=== PATIENT | female | born 1950 | race African-American/Black ===

== ENCOUNTER 2018-06-21 12:21 | Inpatient (IN) | payer OTHER ==
[~2018-06-21] VITALS: Ht 165.1 cm; Wt 62.1 kg
--- NOTE | ~2018-06-21 | 2DMMODE ---
[facility] [address] [place] [address] 2 D/M-MODE ECHOCARDIOGRAM Name: DAILY COULTER Room #: 362-P ADM IN M.R.#: [id number] Admission: 06/21/18 Attend Phys: Larisa Ortiz Discharge: Date of : 48 Date of Service: 06/23/18 [facility] Report #: [id number] THIS REPORT FOR: //name// APPROVED REPORT Study performed: 06/23/2018 09:20:32 EXAM: Comprehensive 2D, Doppler, and color-flow Echocardiogram Patient Location: Echo lab Room #: [facility] Status: routine BSA: 1.68 HR: 69 bpm BP: 117/76 mmHg Rhythm: NSR Other Information Study Quality: Good Indications CVA/TIA Echo Enhancing Agent Indication: Rule out Shunt Agent(s) / Amount(s) Used: Agitated Saline 7 cc 2D Dimensions RVDd: 28.70 mm IVSd: 8.68 (7-11mm) LVOT Diam: 19.19 (18-24mm) LVDd: 40.17 mm PWd: 8.86 (7-11mm) Ascending Ao: 27.04 (22-36mm) LVDs: 24.80 (25-40mm) Aortic Root: 28.04 mm IVC: 18.00 mm Volumes Left Atrial Volume (Systole) Single Plane 4CH: 28.99 mL Single Plane 2CH: 44.87 mL LA ESV Index: 27.00 mL/m2 Aortic Valve AoV Peak David.: 1.28 m/s AO Peak Gr.: 6.57 mmHg LVOT Max P.60 mmHg LVOT Max V: 1.07 m/s EVIN Vmax: 2.[address] [facility] [address] [place] [address] 2 D/M-MODE [facility]IOGRAM [facility]: [facility] IN ..#: [id number] Admission: 06/21/18 Attend Phys: Larisa Ortiz Discharge: Date of : 48 Date of Service: 06/23/18 1024 Report #: [id number] Mitral Valve E/A Ratio: 1.2 MV Decel. Time: 167.65 ms MV E Max David.: 0.83 m/s MV A David.: 0.68 m/s MV PHT: 48.62 ms IVRT: 101.50 ms Pulmonary Valve PV Peak David.: 0.76 m/s PV Peak Gr.: 2.35 mmHg Pulmonary Vein P Vein S: 0.58 m/s P Vein A: 0.28 m/s P Vein D: 0.34 m/s P Vein A Dur.: 110.7 msec P Vein S/D Ratio: 1.71 Tricuspid Valve TR Peak David.: 2.45 m/s TR Peak Gr.: 23.98 mmHg PA Pressure: 29.00 mmHg Left Ventricle The left ventricle is normal size. There is normal LV segmental wall motion. There is normal left ventricular wall thickness. The left ventricular systolic function is normal. The left ventricular ejection fraction is within the normal range. LVEF is 60-65%. Grade II - pseudonormal filling dynamics. Right Ventricle The right ventricle is normal size. The right ventricular systolic function is normal. Atria The left atrium size is normal. Interatrial septum is intact without evidence of ASD or PFO. The right atrium size is normal. Aortic Valve The aortic valve is normal in structure. Trace aortic regurgitation. There is no aortic valvular stenosis. Mitral Valve The mitral valve is normal in structure. There is no mitral valve regurgitation noted. No evidence of mitral valve stenosis. Tricuspid Valve The tricuspid valve is normal in structure. There is mild tricuspid [facility] [address] [place] [address] 2 D/M-MODE ECHOCARDIOGRAM Name: DAILY COULTER Room #: 362-P ADM IN ..#: [id number] Admission: 06/21/18 Attend Phys: Larisa Ortiz Discharge: Date of : 48 Date of Service: 06/23/18 1024 Report #: [id number] regurgitation. Estimated PAP 29 mmHg. There is no pulmonary hypertension. Pulmonic Valve The pulmonary valve is normal in structure. Trace pulmonic regurgitation. Great Vessels The aortic root is normal in size. IVC is normal in size and collapses >50% with inspiration. Pericardium There is no pericardial effusion. <Conclusion> The left ventricle is normal size. LVEF is 60-65%. Interatrial septum is intact without evidence of ASD or PFO. The aortic valve is normal in structure. Trace aortic regurgitation. The mitral valve is normal in structure. The tricuspid valve is normal in structure. There is mild tricuspid regurgitation. Estimated PAP 29 mmHg. There is no pulmonary hypertension. The pulmonary valve is normal in structure. Trace pulmonic regurgitation. There is no pericardial effusion. <ELECTRONICALLY SIGNED> By: Austin Palacios MD 06/23/18 1024 1024 1024 Austin Palacios MD /INF
--- NOTE | ~2018-06-21 | HC ---
[facility] [place] [address] CONSULTATION Name: DAILY COULTER Room #: 362-P ADM IN M.R.#: [id number] Admission: 06/21/18 Attend Phys: Larisa Leon Discharge: Date of : 48 Report #: [id number] THIS REPORT FOR: //name// CC: Larisa Cole DATE OF SERVICE: 06/24/2018 REASON FOR CONSULTATION: Possible vertebral osteomyelitis. HISTORY OF PRESENT ILLNESS: The patient is a 67-year-old woman who presented to the Emergency Room with stroke-like symptoms including generalized weakness, dizziness and inability to get out of bed. She reported that she had left-sided problems with whole body left-sided numbness. Since her hospitalization, those symptoms have largely improved. She has noted some problems with headache and some neck pain, which has been present for years intermittently. She was evaluated early by Neurology. She was studied and it was felt that she did not have a stroke. However, on her imaging studies, there is a question of osteomyelitis and diskitis at C7-T1. We were asked to give an opinion about this. PAST MEDICAL HISTORY: Includes osteoporosis, sleep apnea, hyperlipidemia, poor dental hygiene. No recent dental work. Colonoscopy several months ago, which was negative. SOCIAL HISTORY: She lives at home and taking care of her . She is active. Non smoker. ALLERGIES: No known allergies. MEDICATIONS: Seen on the MRAD. They are noncontributory. REVIEW OF SYSTEMS: A 12-point review of systems was performed and was negative other than outlined above. PHYSICAL EXAMINATION: GENERAL: She is pleasant, alert and cooperative, oriented x 3, reporting that she is feeling overall better today. I have had her sit at the bedside. She reported mild discomfort in her neck and said that is a chronic problem. NEUROLOGIC: Her pupils are equal and reactive with normal extraocular motor function. Facial motor and facial sensory examination was normal. Lower cranial nerves were intact. Motor examination: Strength 5/5 in upper and lower extremities bilaterally. On sensory examination, she is intact to light touch in upper and lower extremities bilaterally with hypoactive reflexes. NECK: Examination of her neck, the neck was supple. There was mild tenderness over the trapezius muscles bilaterally with palpation. There was full range of [address] [address] CONSULTATION Name: DAILY COULTER Room #: [address] [place] [address] IN M.R.#: [id number] Admission: 06/21/18 Attend Phys: Larisa Leon Discharge: Date of : 48 Report #: [id number] motion of her neck. EXTREMITIES: There was full range of motion of upper and lower extremities bilaterally. LABORATORY DATA: I reviewed an MRI of the cervical spine. On that study, there are changes at C7-T1 at the level of the disc, which are suggestive of osteomyelitis including increased T2 signal within the intervertebral disc. There was also significant spondylosis throughout this region. I did not see evidence of abscess formation. There was no spinal stenosis. There were no abnormalities in the perivertebral region. Her sed rate was 13. At this point, I have a fairly low index of suspicion for osteomyelitis/discitis in this patient based primarily on her lack of symptoms and negative inflammatory markers. I note that she is undergoing a gallium scan today. I agree with leaving her off antibiotics. I suspect we are dealing with narrow region of severe spondylosis and inflammation related to that at C7-T1 with perhaps distant trauma creating the changes we see on the MRI scan. I do think she should be followed. Even if the gallium scan is negative, I would recommend a followup MRI scan of the cervical spine in 2-4 weeks. If there is ongoing osteomyelitis/diskitis, we would see progressive changes over that time interval. I appreciate very much of asking us to see her. <ELECTRONICALLY SIGNED> By: Boyd Denton MD 06/25/18 1423 1014 0331 Boyd Denton MD /nt
--- NOTE | ~2018-06-21 | EKG ---
[address] [place] [address] ELECTROCARDIOGRAM REPORT Name: DAILY COULTER Room #: 362-P ADM IN M.R.#: [id number] Admission: 06/21/18 Attend Phys: Larisa Leon Discharge: Date of : 48 Report #: [id number] THIS REPORT FOR: //name// [facility] ED Test Date: 2018-06-21 Test Time: 12:24:46 Pat Name: DAILY COULTER Department: Room: 362 P Gender: F Demand Manager: JONAH : 1950 Requested By: Guera Castrejon Order Number: [id number] MD: Darius Pierre Measurements Intervals [place] Rate: 89 P: 43 MS: 141 QRS: -6 QRSD: 87 T: -4 QT: 364 QTc: 443 Interpretive Statements Sinus rhythm Abnormal R-wave progression, early transition Borderline T abnormalities, inferior leads No previous ECG available for comparison Electronically Signed On 06-21-2018 16:31:35 CDT by Darius Pierre [email or web address] <ELECTRONICALLY SIGNED> By: Darius Pierre MD 06/21/18 1631 1224 1224 Darius Pierre MD /PITER
--- NOTE | ~2018-06-21 | HC ---
[facility] [address] [address] CONSULTATION Name: DAILY COULTER Room #: 362-P [facility] IN M.R.#: [id number] Admission: 06/21/18 Attend Phys: Larisa Leon Discharge: 06/30/18 Date of : 48 Report #: [id number] THIS REPORT FOR: //name// CC: Larisa Cole DATE OF SERVICE: 06/23/2018 HISTORY OF PRESENT ILLNESS: The patient is a 67-year-old -[place] female admitted with dizziness, left-sided weakness as well as some right lower extremity weakness. Neurology has been involved and they indicated that her symptoms were somewhat nonspecific and there has been some changing in her description, making it difficult to establish the diagnosis. CT of the head and CTA and MRI of the brain are noted to be negative. She is to undergo imaging of her cervical spine. We are seeing her in rehabilitation medicine consultation. PAST MEDICAL HISTORY: Includes osteoporosis, elevated cholesterol, and obstructive sleep apnea. ALLERGIES: No known drug allergies. HABITS: She has had exposure to tobacco smoke. No history of alcohol abuse. SOCIAL HISTORY: She lives alone in an apartment, one floor, one step. Plan is to move in with her daughter in [place], there is a full flight of steps to get up to the granddaughter's living area. Daughter does work during the day. There is a cane or walker that the patient would utilize on and off at times; although the daughter did not typically see the patient utilizing gait aids per the daughter's history. REVIEW OF SYSTEMS: She did not offer any current complaints of chest pain, shortness of breath, or abdominal discomfort. She did not offer any complaints of swallowing difficulties. No current pain complaints. PHYSICAL EXAMINATION: GENERAL: A 67-year-old -[place] female in no obvious distress. VITAL SIGNS: Last recorded temperature is 97.7, pulse is 83, respirations are 15, and blood pressure is 117/76. She is alert. HEENT: Appeared to be benign. Dentition is fair. NEUROLOGIC: Facies appeared symmetric. EOMs appeared to be intact. There is no visual field, decrease to confrontation. Functional range of motion of both upper extremities, strength is a grade 4/5. DTRs are trace to 1. Slow but does reasonably well with [id number]. Lower extremities, no focal calf swelling. She moves her lower extremities slowly. Strength is probably a grade 3+4-/5. No clonus at the ankles. [facility] [address] [place] [address] CONSULTATION Name: DAILY COULTER Room #: 362-P [facility] IN [facility].#: [id number] Admission: 06/21/18 Attend Phys: Larisa Leon Discharge: 06/30/18 Date of : 48 Report #: [id number] ASSESSMENT: A 67-year-old -[place] female with the following problem list: 1. Left-sided weakness without obvious etiology. 2. Complaints of right lower extremity weakness again without obvious etiology. 3. Gait instability. 4. Functional mobility and ADL deficits. 5. Osteoporosis. 6. Elevated cholesterol. 7. Obstructive sleep apnea. PLAN: Therapy evaluations are underway. We will need to see what her functional deficits are and proceed from there. We will be glad to follow along with you regarding her rehab therapy needs. <ELECTRONICALLY SIGNED> By: Ashu Gray MD 07/04/18 1220 1059 0010 Ashu Gray MD /PMT
--- NOTE | ~2018-06-21 | EEG ---
[facility] [place] [address] ELECTROENCEPHALOGRAM Name: DAILY COULTER Room #: 362-P ADM IN M.R.#: [id number] Admission: 06/21/18 Attend Phys: Larisa Villaseñor Discharge: Date of : 48 Report #: [id number] THIS REPORT FOR: //name// CC: Larisa Cole DATE OF SERVICE: 06/21/2018 This patient is being evaluated for dizziness and left-sided weakness. EEG was done by placing the electrodes by standard 10-20 system of electrode placement. Both referential and sequential montages were used for recording. Background activity in this patient's EEG is about 11 Hz and 40 microvolts. It is a symmetrical activity. Photic stimulation is unremarkable. This patient went to sleep that is associated with bilaterally symmetrical sleep spindle and vertex sharp waves. Throughout the record no active epileptiform activity was noticed. IMPRESSION: This patient's electroencephalogram is within normal limit. Thank you very much for this referral. <ELECTRONICALLY SIGNED> By: Stiven Cohen MD 06/24/18 1700 0859 1334 Stiven Cohen MD /nt
--- NOTE | ~2018-06-21 | HC ---
[facility] [place] [address] CONSULTATION Name: DAILY COULTER Room #: 362-P ADM IN M.R.#: [id number] Admission: 06/21/18 Attend Phys: Larisa Leon Discharge: Date of : 48 Report #: [id number] THIS REPORT FOR: //name// CC: Larisa Cole DATE OF SERVICE: 06/21/2018 HISTORY OF PRESENT ILLNESS: This is a 67-year-old female patient for whom a consultation was kindly requested by Dr. Castrejon from the Emergency Room for possible CVA. I discussed the patient with her in detail before seeing the patient and after seeing the patient. I talked to the family. As I understand, the patient lives by herself. She went to sleep last night and she was fine and then about 3:00 this morning, she woke up and she could not walk. She was also feeling dizzy. History is very poorly defined. There is some question of not feeling right and I am not sure whether that means she had some altered mental status or whether it was just because of dizziness. She was about the same. She finally called her daughter and the daughter brought her to Emergency Room. She has no prior history of stroke. They tell me her memory in the baseline is reasonable that she is able to function by herself. It is difficult for me to tell because we have not seen this patient before. REVIEW OF SYSTEMS: Indicate that when she came here at least her blood sugar was 77. Her blood pressure is reasonable here and she does not have any reactive hypertension. To me she tells me she does not have any history of hypertension. She denies being on any diabetic medicines. She denies any previous cardiac disease. She did have a CT angiogram of the head and neck that does not show any blockage, but the transit time is somewhat abnormal and they have recommended an MRI. She does not know what her baseline cholesterol is. She said she is not on any blood thinner. PAST MEDICAL HISTORY: Negative for any stroke or any cardiac problem. FAMILY HISTORY: Negative for early age strokes. SOCIAL HISTORY: She lives by herself. PHYSICAL EXAMINATION: The patient's examination indicate that the patient is alert and responsive. Her affect is somewhat different. Speech is somewhat different, but she is able to convey most of the things. Cranial nerve examination again she smiles in somewhat unusual way. Sometime it looks like there is a weakness on the left side of the face, sometime I can tell. She does appear to have a reasonable visual field on both sides. 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 She is also weak on the left lower extremity. Some question has been noticed of the right-sided weakness, but I did not see any weakness on the right side in this [facility] [address] [place] [address] CONSULTATION Name: DAILY COULTER Room #: 362-P [facility] IN M.R.#: [id number] Admission: 06/21/18 Attend Phys: Larisa Leon Discharge: Date of : 48 Report #: [id number] patient when I saw this patient at least when she gave a good effort, but she indicates that she has arthritis and lot of weakness is because of that. She said her sensation is that she cannot feel on the left side in both upper and the lower extremity, but she can feel it on the right side. Vital signs indicate a blood pressure of 139/94, respirations 18, pulse is 90 and temperature is 98. LABORATORY DATA: Looks fairly unremarkable. CT angio of the head and neck is unremarkable. Her calcium is a trace high at 10.2. We will get an albumin checked some time. IMPRESSION: This patient most likely had a stroke, but the symptoms are pretty unusual in this patient. Typically, these patients have right-sided stroke and some neglect on the left side and when they tried to walk and that is the time they noticed this weakness, but her history of dizziness and not feeling right is somewhat unusual and she also gives some history that she has been weak because of arthritis in the past and I do not know how to fit in there. I discussed the situation with the family. There is no contraindication for doing an MRI in this patient. She will need an MRI to confirm the diagnosis of stroke. With pretty confusing symptoms in this patient, I think it will be desirable to proceed with the MRI to confirm the diagnosis of stroke in this patient. If MRI of the brain confirmed a stroke, then we need to proceed with the further management of that. Further management if it is a stroke is not going to be much at the moment. I suggested to Emergency Room physician that we give her some fluids to keep her blood pressure high, give her aspirin. She is not TPA candidate because the time of onset of is yesterday evening when she went to sleep and she is not an intervention candidate because there is no blood clot, which has been demonstrated on the CT angiogram. Her cholesterol just came and she does have dyslipidemia and she will need the management of that, but on the other hand, her HDL is also very high at 82, at least partly nullifying the dyslipidemia. If for some reason, MRI does not confirm the stroke then she needs to be worked up for stroke mimic. I do not think she has any intracranial infection or seizures, but if MRI does not demonstrate or confirm any stroke, then I think we need to work her up for stroke mimic. Because of atypical feature in this patient, I think it is best to proceed with the MRI today if somehow we can get it done, so I ordered a stat for that and we will look at it and if the MRI confirmed the stroke main management is going to be systemic. If it is a small vessel stroke, the patient can become worst. I made that very clear to the family. There is nothing you can do to prevent that worsening. We will reevaluate after the MRI is done and if MRI does not confirm the stroke, then I think we need to work her up for stroke mimic. More than 50 minutes of time was [facility] [address] [place] [address] CONSULTATION Name: DAILY COULTER Room #: 362-P ADM IN M.R.#: [id number] Admission: 06/21/18 Attend Phys: Larisa Leon Discharge: Date of : 48 Report #: [id number] spent taking care of this patient today and majority of that time was spent counseling this patient and coordinating her care. <ELECTRONICALLY SIGNED> By: Stiven Cohen MD 06/24/18 1659 1701 0557 Stiven Cohen MD /nt
--- NOTE | ~2018-06-21 | HC ---
[facility] [place] [address] CONSULTATION Name: DAILY COULTER Room #: 362-P ADM IN M.R.#: [id number] Admission: 06/21/18 Attend Phys: Larisa Leon Discharge: Date of : 48 Report #: [id number] THIS REPORT FOR: //name// CC: Larisa Cole DATE OF SERVICE: 06/23/2018 REASON FOR CONSULTATION: I was asked to evaluate concerning possible vertebral osteomyelitis. HISTORY OF PRESENT ILLNESS: The patient is a 67-year-old who presented to the Emergency Room on 06/21/2018 with acute onset of generalized weakness, dizziness, inability to get out of bed early in the morning when her had called for her in another room. Denied any specific fever, although she said she has been having intermittent chills and sweats. She had difficulty walking. She noted some left-sided weakness. She had some mild headache and neck pain along with generalized arthralgias. She was seen by Neurology who noticed no focal neurologic changes. She had some left leg and arm sensory complaints, which were unable to be documented as defects on examination. She had further workup including CT stroke protocol with perfusion scan, which showed unremarkable study in the neck. She has slight asymmetry in the mean transit time through the right cerebral hemisphere. This, however, remained below 6 seconds. It was felt that the exam was within normal limits. Ultrasound of the carotids noticed mild plaquing with less than 50% stenosis. MR scan of the head showed no evidence of acute or recent infarct or other intracranial abnormality. MRI scan of the cervical spine revealed increased uptake in C7-T1 disk space with associated bony change. No epidural extension. This was discussed with Dr. Daniel Hernandes who noted no other adjacent fluid collection to suggest epidural abscess. There was no spinal stenosis. Otherwise, had moderate multilevel degenerative disk disease. She has had no skin lesions. She had a colonoscopy several months ago with no invasive intervention or biopsy performed. She has had poor dental hygiene. No recent dental work. She has been fairly stressed at her home taking care of her . She has remained fairly active. Daughter questions whether there could be some psychological overlay. ALLERGIES: None known. MEDICATIONS: Paroxetine, simvastatin prior to her admission. FAMILY HISTORY: Noncontributory. [address] [address] CONSULTATION Name: SIVAN COULTERPR Room #: 362-P [facility] IN M.R.#: [id number] Admission: 06/21/18 Attend Phys: Larisa Leon Discharge: Date of : 48 Report #: [id number] SOCIAL HISTORY: Nonsmoker, no significant alcohol intake. PAST MEDICAL HISTORY: Osteoporosis, hyperlipidemia, obstructive sleep apnea. REVIEW OF SYSTEMS: CONSTITUTIONAL: Negative other than what is described above with no weight loss or night sweats noted. EYES: Without visual changes. HENT: No oral mucosal issues or hearing issues. PULMONARY: Negative. CARDIOVASCULAR: Negative. GASTROINTESTINAL: Negative. GENITOURINARY: Negative. NEUROLOGIC: As above. PSYCHIATRIC: As above. No adenopathy reported. SKIN: As above. PHYSICAL EXAMINATION: VITAL SIGNS: She was afebrile and hemodynamically stable. GENERAL: She was ambulatory with a walker. She is alert and cooperative, sitting at the side of the bed. Mood appeared normal. She did have some generalized weakness. HEENT: No conjunctival injection or scleral icterus. Mouth with several teeth with dental caries, several teeth missing. No other oral mucosal changes. NECK: Supple, with no thyromegaly or mass. She did note some pain on flexion of her neck. She had reasonable range of motion. No peripheral adenopathy. SKIN: Without rash or lesion. LUNGS: Clear. HEART: Regular, without murmur. ABDOMEN: Soft and nontender with no hepatosplenomegaly or mass. EXTREMITIES: Without cyanosis or edema. NEUROLOGIC: Cranial nerves intact. Strength was normal in the upper and lower extremities. Deep tendon reflexes normal in the upper and lower extremities. Sensation intact to touch in the upper and lower extremities. LABORATORY STUDIES: MRI scan as noted above. Echocardiogram unremarkable. Sedimentation rate 13. Hemoglobin 13.3, WBC 6.4, platelet count 378,000. Sodium 139, potassium 3.5, bicarbonate 26, creatinine 0.7. IMAGING STUDIES: As noted above. IMPRESSION: 1. A 67-year-old with presentation of unsteadiness and possible focal neurologic deficit which has resolved. During her workup, now has evidence of increased uptake within C7-T1 disk space and has bony change as well. This is suggestive of diskitis with vertebral osteomyelitis. The patient, however, has [address] [address] CONSULTATION Name: DAILY COULTER Room #: 362-P ADM IN M.R.#: [id number] Admission: 06/21/18 Attend Phys: Larisa Leon Discharge: Date of : 48 Report #: [id number] had no ongoing infectious symptoms such as fever or chills. Her neck pain is mild to moderate in intensity. Her inflammatory markers are unremarkable. 2. Osteoporosis. 3. Hyperlipidemia. 4. Indeterminant neurologic complaints. RECOMMENDATION: This area is not amenable for Radiology percutaneous aspiration. We will need to have Neurosurgery evaluate. We will have their opinion regarding feasibility of needle aspiration. We will obtain blood cultures. Check CRP. May also consider gallium scan. We will maintain off antibiotics at this point in time. Ultimately, the patient will need further dental evaluation and treatment. <ELECTRONICALLY SIGNED> By: Jorge Ferreira MD 06/24/18 2033 [id number] Jorge Ferreira MD /nt
[2018-06-21 12:27] VITALS: BP 136/71
[2018-06-21 12:46] LABS: ABSOLUTE NEUTROPHILS 2.4 thou/uL (1.4-8.2); BASOPHILS 1.9 % (0.0-2.0); HEMATOCRIT 39.6 % (37.0-47.0); HEMOGLOBIN 13.3 gm/dL (12.0-15.0); LYMPHOCYTES 49.5 % (24.0-44.0); MCH 27.6 pg (26.0-34.0); MCHC 33.6 g/dL (28.0-37.0); MCV 82.1 fL (80.0-100.0); MONOCYTES 9.2 % (1.0-8.0); PLATELET COUNT 378 thou/uL (150-400); POLYS 38.4 % (36.0-66.0); RBC 4.82 mil/uL (4.20-5.00); RDW 13.5 % (10.5-14.5); WBC 6.4 thou/uL (4.0-11.0)
[2018-06-21 12:54] LABS: CALCIUM 10.2 mg/dL (8.5-10.1); CREATININE 0.7 mg/dL (0.6-1.0); POTASSIUM 3.5 mmol/L (3.5-5.1)
[2018-06-21 13:04] LABS: APTT 28.1 Seconds (24.5-32.8); PROTIME 10.1 Seconds (9.3-11.4)
[2018-06-21 14:52] VITALS: BP 154/86
[2018-06-21 15:13] LABS: CHOLESTEROL 276 mg/dL (<200); HDL CHOLESTEROL 82 mg/dL (>40); LDL CHOLESTEROL 180 mg/dL (<100); TC:HDL 3.4 Ratio (Not establshd); TRIGLYCERIDE 73 mg/dL (<150); VLDL 15 mg/dL (<40)
[2018-06-21 15:32] VITALS: BP 154/86
[2018-06-21 15:44] LABS: FOLIC ACID 17.7 ng/mL (8.6-58.9)
[2018-06-21 16:51] VITALS: BP 139/94; BP 141/85
[2018-06-21] MEDS ORDERED: PAROXETINE HCL40 MG PO (18:14)
[2018-06-21] MEDS ORDERED: SIMVASTATIN40 MG PO (18:15)
[2018-06-21 19:33] VITALS: BP 150/93
[2018-06-22 04:00] VITALS: BP 140/95
[2018-06-22 08:08] VITALS: BP 139/93
[2018-06-22 15:21] VITALS: BP 135/88
[2018-06-22 19:44] VITALS: BP 148/93
[2018-06-23 04:08] VITALS: BP 140/85
[2018-06-23 07:43] VITALS: BP 117/76
[2018-06-23 15:10] VITALS: BP 125/72
[2018-06-23 19:15] VITALS: BP 122/86
[2018-06-23 22:05] LABS: IgA 191 mg/dL (87-352); IgG 1105 mg/dL (700-1600); IgM 34 mg/dL (26-217)
[2018-06-24 04:30] VITALS: BP 146/91
[2018-06-24 08:01] VITALS: BP 148/93
[2018-06-24 19:15] VITALS: BP 138/91
[2018-06-25 02:32] VITALS: BP 137/88
[2018-06-25 07:42] VITALS: BP 149/98
[2018-06-25 16:42] VITALS: BP 142/89
[2018-06-25 20:53] VITALS: BP 51/92
[2018-06-26 05:05] VITALS: BP 128/90
[2018-06-26 08:22] VITALS: BP 149/94
[2018-06-26 16:29] VITALS: BP 161/88
[2018-06-26 19:45] VITALS: BP 125/81
[2018-06-27 03:23] VITALS: BP 117/77
[2018-06-27 07:20] VITALS: BP 114/74
[2018-06-27] MEDS ORDERED: ASPIRIN325 PO (08:39)
[2018-06-27 15:15] VITALS: BP 133/89
[2018-06-27 19:29] VITALS: BP 141/89
[2018-06-28 03:43] VITALS: BP 115/92
[2018-06-28 07:21] VITALS: BP 106/77
[2018-06-28 11:44] VITALS: BP 100/74
[2018-06-28 16:03] VITALS: BP 121/76
[2018-06-28 19:46] VITALS: BP 97/73
[2018-06-29 04:05] VITALS: BP 122/73
[2018-06-29 07:52] VITALS: BP 111/76
[2018-06-29 11:42] VITALS: BP 112/77
[2018-06-29 16:45] VITALS: BP 107/82
[2018-06-29 19:18] VITALS: BP 112/81
[2018-06-30 03:58] VITALS: BP 100/79
[2018-06-30 08:10] VITALS: BP 110/87
== END 2018-06-30 14:28 | DRG 552 ==
LOC: ER 12:21 → EROBS 14:42 → 3W 14:42
PROVIDERS: Emergency Medicine; Hospitalist; Psychiatry & Neurology Neuromuscular Medicine
DX: M46.42 Discitis, unspecified, cervical region (principal); Z77.22 Contact with and (suspected) exposure to environmental tobacco smoke (acute) (chronic); M81.0 Age-related osteoporosis without current pathological fracture; E78.00 Pure hypercholesterolemia, unspecified; M19.90 Unspecified osteoarthritis, unspecified site; E78.5 Hyperlipidemia, unspecified; G47.33 Obstructive sleep apnea (adult) (pediatric); Z60.2 Problems related to living alone; M46.83 Other specified inflammatory spondylopathies, cervicothoracic region; Z79.899 Other long term (current) drug therapy
CPT/HCPCS: 10879

== ENCOUNTER → 2018-08-01 | Outpatient (CLI) | payer OTHER ==
[~2018-08-01] MED LIST: ASPIRIN325 PO; PAROXETINE HCL40 MG PO; SIMVASTATIN40 MG PO
== END ==
LOC: MRI 10:22
DX: M50.33 Other cervical disc degeneration, cervicothoracic region (principal); M48.03 Spinal stenosis, cervicothoracic region; M25.78 Osteophyte, vertebrae

== ENCOUNTER → 2018-10-14 | Outpatient (CLI) | payer OTHER | LOC: MRI 10:56 | DX: M47.813 Spondylosis without myelopathy or radiculopathy, cervicothoracic region (principal); M50.23 Other cervical disc displacement, cervicothoracic region; M48.03 Spinal stenosis, cervicothoracic region; M25.78 Osteophyte, vertebrae ==

== ENCOUNTER 2019-03-24 06:17 | Inpatient (IN) | payer OTHER ==
[~2019-03-24] VITALS: Ht 162.6 cm; Wt 62.1 kg
[2019-03-24 06:29] VITALS: BP 166/100
[2019-03-24] MEDS ORDERED: OMEPRAZOLE40 MG PO (06:53)
[2019-03-24 09:05] LABS: BASOPHILS 0.5 % (0.0-2.0); EOSINOPHILS 2.6 % (0.0-3.0); HEMATOCRIT 35.3 % (37.0-47.0); HEMOGLOBIN 11.8 gm/dL (12.0-15.0); LYMPHOCYTES 34.4 % (24.0-44.0); MCH 28.3 pg (26.0-34.0); MCHC 33.6 g/dL (28.0-37.0); MCV 84.2 fL (80.0-100.0); MONOCYTES 10.3 % (1.0-8.0); PLATELET COUNT 351 thou/uL (150-400); POLYS 52.2 % (36.0-66.0); RBC 4.19 mil/uL (4.20-5.00); RDW 13.3 % (10.5-14.5); WBC 5.8 thou/uL (4.0-11.0)
[2019-03-24 09:11] LABS: ANION GAP 11 mmol/L (7-16); BUN 7 mg/dL (7-18); CALCIUM 8.9 mg/dL (8.5-10.1); CHLORIDE 107 mmol/L (98-107); CO2 27 mmol/L (21-32); CREATININE 0.7 mg/dL (0.6-1.0); GLUCOSE 93 mg/dL (74-106); POTASSIUM 3.7 mmol/L (3.5-5.1); SODIUM 145 mmol/L (136-145)
[2019-03-24 09:15] LABS: URINE BILIRUBIN NEGATIVE (Negative); URINE BLOOD NEGATIVE (Negative); URINE CLARITY CLEAR; URINE COLOR YELLOW; URINE GLUCOSE-RANDOM* NEGATIVE (Negative); URINE KETONES NEGATIVE (Negative); URINE LEUKOCYTES-REFLEX 1+ (Negative); URINE NITRITE-REFLEX NEGATIVE (Negative); URINE PROTEIN (DIPSTICK) NEGATIVE (Negative); URINE SPECIFIC GRAVITY <= 1.005 (1.005-1.035); URINE UROBILINOGEN 0.2 E.U./dl (0.2-1.0)
[2019-03-24 09:19] LABS: ALBUMIN 3.2 g/dL (3.4-5.0); SGOT 22 U/L (15-37); SGPT 25 U/L (30-65); TOTAL BILIRUBIN 0.2 mg/dL (<0.1-1.0); TROPONIN-I <0.06 ng/mL (<0.06)
[2019-03-24 09:24] LABS: SQUAMOUS 0-3 Few /LPF (0-3)
[2019-03-24 09:25] LABS: BACTERIA-REFLEX 1-9 Few /HPF (None Seen); CASTS None Seen /LPF (None Seen); CRYSTALS None Seen /LPF (None Seen); URINE RBC None Seen /HPF (0-2); URINE WBC-REFLEX 0-5 Rare /HPF (0-5)
[2019-03-24 09:26] LABS: AMP/METHAMP Negative (Negative); BARBITURATES Negative (Negative); BENZODIAZEPINES Negative (Negative); COCAINE Negative (Negative); METHADONE Negative (Negative); OPIATES Negative (Negative); PCP Negative (Negative)
[2019-03-24] MEDS ORDERED: IBUPROFEN 200200 M1 PO (11:49)
[2019-03-24 11:51] VITALS: BP 138/89
[2019-03-24 12:52] VITALS: BP 146/84
--- NOTE | 2019-03-24 13:02 | EKG ---
[address] [place] [address] ELECTROCARDIOGRAM REPORT Name: DAILY COULTER Room #: 170-6 ADM IN M.R.#: [id number] ������������������ Admission: 03/24/19 ������������������ Attend Phys: Balta Najera MD Discharge: ������������������ Date of : 48 Report #: [id number] ����������������������������������������������������������������� [id number] THIS REPORT FOR: //name// [facility] ED Test Date: 2019-03-24 Test Time: 09:09:33 Pat Name: DAILY COULTER Department: Room: 170 Gender: F Educational Rec[employer]iter: LUCI : 1950 Requested By: Ifeanyi Hogan Order Number: [id number] MD: Harry Arriola Measurements Intervals Nitro Rate: 83 P: 29 DC: 129 QRS: 6 QRSD: 85 T: 2 QT: 396 QTc: 466 Interpretive Statements Sinus rhythm RSR' in V1 or V2, right VCD Compared to ECG 06/21/2018 12:24:46 No significant change was found Electronically Signed On 03-24-2019 13:02:02 CDT by Harry Arriola [email or web address] ��������������������������������������������� <ELECTRONICALLY SIGNED> ���������������������������������������� By: Harry Arriola MD, [facility] ��������������������������������������������� 03/24/19 1302 [id number] Harry Arriola MD, [facility] /EPI
[2019-03-24 13:38] VITALS: BP 148/87
[2019-03-24 16:10] VITALS: BP 153/88
--- NOTE | 2019-03-24 17:26 | NUR ---
Patient arrived to [address] [place] [address] around 1330 this afternoon. IV started on [address] [place] [address] due to no IV access. Patient placed on telemetry; hospital tele concerns explained to patient. Regular diet and orders for tylenol given for headaches by Dr. Delgadillo. All admission history recieved from patient. Patient ALOx4. Patient has been drowsy since arrival. Will continue to monitor.
[2019-03-24 19:25] VITALS: BP 151/97
[2019-03-25] VITALS (7 sets, daily range): BP systolic 135–154; BP diastolic 67–99
--- NOTE | 2019-03-25 04:57 | NUR ---
PATIENT IS ALERT AND ORIENTED. PATIENT IS UP TIMES ONE. PATIENT IS STEADY ON FEET. PATIENT IS ROOM AIR. PATIENT IS NSR ON TELE. PATIENT USES A CANE AT HOME. PATIENTS LBM WAS THE 1ST. PATIENTS MRI WAS (-). PENDING ORDERS. PATIENTS PAIN (HEADACHE) TREATED WITH TYLENOL. PATIENT HAS SLIGHT FEVER. PATIENT IS RESTING COMFORTABLY IN BED. WCM. PATIENT IS PROGRESSING TO GOALS.
[2019-03-25 10:29] LABS: TSH 0.542 uIU/mL (0.358-3.740)
--- NOTE | 2019-03-25 15:52 | NUR ---
INITIAL ASSESSMENT: SW reviewed chart and spoke with nursing and attending physician. Pt was admitted from home due to vertigo/inability to ambulate. 5N consulted. SW met with pt at bedside. Introduced role of SW. Pt is alert/orientated x 4. Pt reports she normally lives at home with her spouse. Pt's spouse is currently at [facility] for rehab. Pt has been to [facility] in the past and is agreeable with referral to [facility] if needed. Will need insurance authorization for post acute care. Pt reports she has a cane and walker at home. Pt has used [facility] in the past. Pt's PCP is Dr. Malia Cole. operations planner to fax referral to [facility]. SW is following to assist as needed with discharge planning.
--- NOTE | 2019-03-25 16:10 | NUR ---
alessandra sent skilled referral on patient to [facility].
--- NOTE | 2019-03-25 16:20 | NUR ---
Patient remains drowsy but oriented x4. Patient worked with therapies today, and has been cooperative. Patient has been steady on her feet. Patient expressed she wants to do rehab where her is at [facility] or go home. Patient has slept most of the day. Case management met with patient late this afternoon. Slowly making progress toward plan of care.
[2019-03-26 04:40] VITALS: BP 156/87
--- NOTE | 2019-03-26 07:35 | NUR ---
Assumed care at 1845. Pt resting in bed. AOX4. VSS. Stand by assist. Call light within reach. Bed in lowest position. Will continue to monitor.
[2019-03-26 15:33] VITALS: BP 127/76
--- NOTE | 2019-03-26 15:58 | NUR ---
Patient ALOx4 and more awake today. Patient ready to go home as she stated her gets discharged from [facility] tomorrow. Patient calls out appropriately. Patient standby assist with gait belt. Fall precautions in place. So far, no complaints of nausea, vomiting, or pain today. Progress being made toward plan of care.
[2019-03-26 20:22] VITALS: BP 146/90
--- NOTE | 2019-03-27 04:05 | NUR ---
PATIENT IS PROGRESSING IN HER CARE PLAN. VITAL SIGNS STABLE WITH PATIENT HAVING NO COMPLAINTS OF NAUSEA. PATIENT DID COMPLAIN OF PAIN VIA HEADACHE WHICH WAS TREATED EFFECTIVELY WITH MEDICATION. FULLY ORIENTED, PATIENT IS ABLE TO CALL APPROPRIATELY FOR NEEDS. UP MULTIPLE TIMES TO BATHROOM WITH ASSISTANCE INCIDENT FREE, PATIENT HAD NO COMPLAINTS OF BEING DIZZY. SHE IS STILL CONSIDERED A HIGH FALL RISK. PATIENT IS READY FOR EXPECTED DISCHARGE TODAY. CONTINUE PLAN OF CARE.
[2019-03-27 04:32] VITALS: BP 132/76
[2019-03-27 07:18] VITALS: BP 130/91
[2019-03-27] MEDS ORDERED: LORATIDINE 10 M10 M1 PO (09:24)
[2019-03-27] MEDS ORDERED: ANTIVERT25 MG PO (09:24)
--- NOTE | 2019-03-27 10:06 | NUR ---
SHANELL reviewed chart and spoke with nursing and attending physician. Pt is progressing towards goals for discharge. SHANELL met with pt at bedside to discuss discharge plan. Pt states that her is being discharged home from [facility] today, and she would like to go home with HH when discharged. SW confirmed pt's home address and phone number. Options for HH provided. Pt requested to use [facility], as she has used them in the past. Choice of Vendor form signed and placed on chart. mission planner faxed info to [facility]. Final discharge orders/summary will need to be faxed when available. SW is available to assist should needs arise. [facility]--
--- NOTE | 2019-03-27 10:50 | NUR ---
DISCHARGE PLANNING. HOME HEALTH RECOMMENDED AT DISCHARGE. REFERRAL FAXED TO [facility] PER PATIENT REQUEST. CALL PLACED TO [facility], SPOKE WITH JUN INTAKE LIAISON. JUN TO REVIEW REFERRAL AND CONTACT ONCE COMPLETED. [facility] CONTACT NUMBER [phone] FAX NUMBER [phone] PLEASE FAX DISCHARGE ORDERS AND SUMMARY TO [facility] ONCE COMPLETED BY ATTENDING PHYSICIAN. THANK YOU.
[2019-03-27 10:59] VITALS: BP 130/91
[2019-03-27 16:41] VITALS: BP 130/91
--- NOTE | 2019-03-27 17:08 | NUR ---
ASSUMED CARE OF PT AT 0700. PT HAS BEEN A&Ox4, COMPLAINTS OF MILD HEADACHE PAIN. NO COMPLAINTS OF DIZZINESS, N/V. PT HAS BEEN AMBULATING TO BATHROOM WITH STANDBY ASSIST. PT STEADY AND STABLE ON FEET. PT DC'ING HOME WITH [facility]. PT'S IV AND TELE WERE DC'D. PT'S BELONGINGS GATHERED AND SENT WITH PT. DISCHARGE INFORMATION, PRESCRIPTIONS, AND MEDICATION INFORMATION REVIEWED WITH PT AND SENT WITH PT HOME. PT ESCORTED BY UNIT STAFF, IN W/C TO DC HOME WITH FAMILY IN PRIVATE VEHICLE. PT LEFT UNIT AT 1705. DISCHARGE SUMMARY FAXED TO [facility].
== END 2019-03-27 17:23 | disposition home health service (06) | DRG 149 ==
LOC: ER 06:17 → 3W 10:43 → EROBS 10:43 → 3W 13:37
PROVIDERS: Emergency Medicine; Nurse Practitioner Family; ADMIT Internal Medicine
DX: H81.10 Benign paroxysmal vertigo, unspecified ear (principal); E46 Unspecified protein-calorie malnutrition; R29.6 Repeated falls; M81.0 Age-related osteoporosis without current pathological fracture; E78.00 Pure hypercholesterolemia, unspecified; F41.9 Anxiety disorder, unspecified; Z77.22 Contact with and (suspected) exposure to environmental tobacco smoke (acute) (chronic); K21.9 Gastro-esophageal reflux disease without esophagitis; E66.01 Morbid (severe) obesity due to excess calories; J32.1 Chronic frontal sinusitis; E53.8 Deficiency of other specified B group vitamins; F32.9 Major depressive disorder, single episode, unspecified; Z86.73 Personal history of transient ischemic attack (TIA), and cerebral infarction without residual deficits; Z79.82 Long term (current) use of aspirin; Z79.899 Other long term (current) drug therapy; Z68.23 Body mass index [BMI] 23.0-23.9, adult
CPT/HCPCS: 10879